=== PATIENT | male | born 1995 | race Caucasian/White ===

== ENCOUNTER 2017-11-29 15:16 | Emergency (ER) | payer BC, MEDICAID ==
--- NOTE | 2017-11-29 15:28 | Emergency Department Record ---
History of Present Illness - General Chief complaint: Vomiting Stated complaint: VOMITING,HIGH SUGAR,LARGE AMOUNTS OF KEYTONES Time Seen by Provider: 11/29/17 15:20 Source: Patient, Family Mode of Arrival: Ambulatory Limitations: Other - History of Present Illness Initial comments: 22 yo male presents with nausea and vomiting since 7am. He had one loose stool. No blood in either. No fevers. He is a diabetic with an insulin pump. His onset of diabetes was age 11. He has a history of agenesis of the corpus callosum. His mother checked his sugar. It was in the 400's with ketones on his strip at home. Normal range for Lopez is 120-190 on his glucose with an A1C of just over 7. MD complaint: Diarrhea, Nausea, Vomiting Onset/Timin -: Hour(s) Description of Vomiting: Watery Associated Abdominal Pain: Yes Location: Diffuse Improves with: None Worsens with: None Associated Symptoms: Nausea/vomiting - Related Data Home Medications Medication Instructions Recorded Confirmed Last Taken Insulin Aspart [Novolog] 1 units SQ ASDIR 11/29/17 11/29/17 11/29/17 Insulin Glargine,Hum.rec.anlog 33 unit SQ ASDIR 11/29/17 11/29/17 Unknown [Lantus] Allergies Allergy/AdvReac Type Severity Reaction Status Date / Time No Known Drug Allergies Allergy Verified 11/29/17 15:27 Travel Screening - Travel/Exposure Within Last 30 Days Have you traveled within the last 30 days?: No Review of Systems Constitutional: Denies: Chills, Fever, Malaise, Night sweats, Weakness Eyes: Denies: Eye discharge, Eye pain, Photophobia, Vision change ENT: Denies: Congestion, Throat pain Respiratory: Denies: Cough, Dyspnea, Hemoptysis, Stridor, Wheezes Cardiovascular: Denies: Chest pain, Palpitations, Syncope Endocrine: Reports: Polyuria. Denies: Fatigue Gastrointestinal: Reports: As per HPI, Abdominal pain, Diarrhea, Nausea, Vomiting. Denies: Constipation, Hematemesis, Hematochezia, Melena Genitourinary: Reports: Frequency. Denies: Dysuria Musculoskeletal: Denies: Arthralgia, Back pain, Joint swelling, Myalgia Skin: Denies: Bruising, Change in color, Rash Neurological: Denies: Headache, Numbness, Weakness Psychiatric: Denies: Anxiety Hematological/Lymphatic: Denies: Blood Clots, Easy bleeding, Easy bruising, Swollen glands Physical Exam - General General Appearance: Alert, Oriented x3, Cooperative, No acute distress Limitations: No limitations - Head Head exam: Atraumatic, Normal inspection - Eye Eye exam: Normal appearance. negative: Conjunctival injection, Scleral icterus - ENT ENT exam: Normal exam, Mucous membranes dry Ear exam: Normal external inspection Nasal Exam: Normal inspection Mouth exam: Normal external inspection Teeth exam: Normal inspection Throat exam: Normal inspection. negative: Tonsillar erythema, Tonsillomegaly - Neck Neck exam: Normal inspection, Full ROM. negative: Tenderness - Respiratory Respiratory exam: Normal lung sounds bilaterally. negative: Respiratory distress, Rhonchi, Stridor, Wheezes - Cardiovascular Cardiovascular Exam: Normal rhythm, Normal heart sounds, Tachycardia - GI/Abdominal GI/Abdominal exam: Soft. negative: Distended, Guarding, Rebound, Rigid, Tenderness - Rectal Rectal exam: Deferred - exam: Deferred - Extremities Extremities exam: Normal inspection, Full ROM, Normal capillary refill. negative: Pedal edema, Tenderness - Back Back exam: Reports: Normal inspection, Full ROM. Denies: Muscle spasm, Rash noted, Tenderness - Neurological Neurological exam: Alert. negative: Altered - Psychiatric Psychiatric exam: Normal affect, Normal mood - Skin Skin exam: Dry, Intact, Normal color, Warm. negative: Diaphoretic Course Vital Signs 11/29/17 15:22 Temperature 97.6 F Pulse Rate 113 H Respiratory 20 Rate Blood Pressure 128/70 Pulse Ox 97 - Reevaluation(s) Reevaluation #1: vitals reviewed HR is 113 11/29/17 15:28 11/29/17 16:27 The labs were reviewed WBC count is 20.3 pH is 7.26 HCO3 is 17 AG is 28 Glucose is 459 K is 4.8 11/29/17 17:10 Given the DKA, insulin pump, developmental issue, and his providers are at [facility] the patient will be transferred to [facility] for treatment I called through [facility] and the Patient was accepted by Dr Escobedo 11/29/17 18:41 The patient states he is feeling better at this time Bed was assigned at [facility] Accu check is 329 on drip. 11/29/17 18:42 The drip was decreased to 2 units/hour Medical Decision Making - Lab Data Result diagrams: 11/29/17 15:45 11/29/17 15:45 Disposition Disposition: Transfer Clinical Impression: DKA (diabetic ketoacidoses), Vomiting, Dehydration Disposition: Acute Care Hospital Transfer Transfer To: [facility] Reason For Transfer: DKA Accepting Physician: Fanny Time Discussed w/Accepting Physician: 17:12 Condition: (2) Stable Forms: Patient Portal Access Time of Disposition: 17:12 Quality - Quality Measures Quality Measures: N/A - Blood Pressure Screening Does Patient Have Any of the Following: No Blood Pressure Classification: Pre-Hypertensive BP Reading Systolic Measurement: 128 Diastolic Measurement: 70 Screening for High Blood Pressure: < Pre-Hypertensive BP, F/U Documented > [ G8950] Pre-Hypertensive Follow-up Interventions: Referral to alternative/primary care provider.
[2017-11-29] MEDS ORDERED: 0.9 % SODIUM CHLORIDE 1,000 ML BAG IV ONE ×2 (15:29→16:28)
[2017-11-29] MEDS ORDERED: ONDANSETRON HCL IV 4 MG/2 ML VIAL IVP ONE ×2 (15:47→17:29)
[2017-11-29 15:51] LABS: HEMOGLOBIN 16.8 gm/dl (14.0-18.0); MEAN CELL VOLUME 88.6 fl (81-97); MEAN CORPUSCULAR HEMOGLOBIN 33.1 pg (27-33); MEAN CORPUSCULAR HGB CONC 37.3 g/dl (32-36); MEAN PLATELET VOLUME 8.1 fl (7.4-10.4); PLATELET COUNT 256 K/uL (130-400); RED BLOOD COUNT 5.08 M/uL (4.40-5.70); RED CELL DISTRIBUTION WIDTH 13.4 % (11.5-14.5)
[2017-11-29 16:05] LABS: WHITE BLOOD COUNT W/O DIFF 20.3 K/uL (4.2-12.2)
[2017-11-29 16:14] LABS: ALB/GLOB RATIO 2.5 (1.1-1.8); ALBUMIN 5.2 g/dL (4.0-5.0); ALKALINE PHOSPHATASE 102 U/L (40-129); ALT/SGPT 25 U/L (<41); AST/SGOT 21 U/L (10.0-50.0); BLOOD UREA NITROGEN 33 mg/dL (6-20); CREATININE 1.1 mg/dL (0.7-1.2); EST GLOMERULAR FILTRATION RATE > 60 mL/min; TOTAL PROTEIN 7.3 g/dL (6.6-8.7)
[2017-11-29 16:26] LABS: GLUCOSE,RANDOM 459 mg/dL (74-109)
[2017-11-29 16:33] LABS: ACETONE,SERUM POSITIVE (NEGATIVE)
[2017-11-29] MEDS ORDERED: INSULIN REGULAR, HUMAN 100 UNIT in 0.9 % SODIUM CHLORIDE 100ML 100 ML IV SCH ×2 (17:00)
[2017-11-29 18:55] LABS: URINE APPEARANCE CLEAR; URINE BILIRUBIN NEGATIVE (NEGATIVE); URINE BLOOD TRACE-I (NEGATIVE); URINE COLOR YELLOW; URINE KETONE 40 mg/dL (NEGATIVE); URINE LEUKOCYTE ESTERASE NEGATIVE (NEGATIVE); URINE NITRITE NEGATIVE (NEGATIVE); URINE PROTEIN NEGATIVE (NEGATIVE); URINE UROBILINOGEN 0.2 E.U./dL (0.20 - 1.00)
[2017-11-29 18:57] LABS: URINE GLUCOSE (UA) >=1000 mg/dL (NEGATIVE)
[2017-11-29 19:08] LABS: URINE BACTERIA NONE SEEN; URINE RBC 0 - 2 (NONE SEEN); URINE SQUAMOUS EPITHELIAL CELL 0 - 2 /hpf; URINE WBC 0 - 2 (0-2/hpf)
[2017-11-29] MEDS ORDERED: DEXTROSE 5 %-0.45 % NACL 1,000 ML IV PRN (20:15)
--- NOTE | 2017-11-29 20:16 | Emergency Department Record ---
History of Present Illness - General Chief complaint: Vomiting Stated complaint: VOMITING,HIGH SUGAR,LARGE AMOUNTS OF [place] Time Seen by Provider: 11/29/17 15:20 Source: Patient, Family Mode of Arrival: Ambulatory Limitations: No limitations - History of Present Illness MD complaint: Diarrhea, Nausea, Vomiting Onset/Timin -: Hour(s) Description of Vomiting: Watery Associated Abdominal Pain: Yes Location: Diffuse Improves with: None Worsens with: None Associated Symptoms: Nausea/vomiting - Related Data Home Medications Medication Instructions Recorded Confirmed Last Taken Insulin Aspart [Novolog] 1 units SQ ASDIR 11/29/17 11/29/17 11/29/17 Insulin Glargine,Hum.rec.anlog 33 unit SQ ASDIR 11/29/17 11/29/17 Unknown [Lantus] Allergies Allergy/AdvReac Type Severity Reaction Status Date / Time No Known Drug Allergies Allergy Verified 11/29/17 15:27 Travel Screening - Travel/Exposure Within Last 30 Days Have you traveled within the last 30 days?: No Review of Systems Constitutional: Denies: Chills, Fever, Malaise, Night sweats, Weakness Eyes: Denies: Eye discharge, Eye pain, Photophobia, Vision change ENT: Denies: Congestion, Throat pain Respiratory: Denies: Cough, Dyspnea, Hemoptysis, Stridor, Wheezes Cardiovascular: Denies: Chest pain, Palpitations, Syncope Endocrine: Reports: Polyuria. Denies: Fatigue Gastrointestinal: Reports: As per HPI, Abdominal pain, Diarrhea, Nausea, Vomiting. Denies: Constipation, Hematemesis, Hematochezia, Melena Genitourinary: Reports: Frequency. Denies: Dysuria Musculoskeletal: Denies: Arthralgia, Back pain, Joint swelling, Myalgia Skin: Denies: Bruising, Change in color, Rash Neurological: Denies: Headache, Numbness, Weakness Psychiatric: Denies: Anxiety Hematological/Lymphatic: Denies: Blood Clots, Easy bleeding, Easy bruising, Swollen glands Past Medical History - SOCIAL HISTORY Smoking Status: Never smoker Alcohol Use: None Drug Use: None - RESPIRATORY Hx Respiratory Disorders: No - CARDIOVASCULAR Hx Cardio Disorders: No - NEURO Hx Neuro Disorders: No - GI Hx GI Disorders: No - Hx Genitourinary Disorders: No - ENDOCRINE Hx Endocrine Disorders: Yes Hx Diabetes: Yes - MUSCULOSKELETAL Hx Musculoskeletal Disorders: No - PSYCH Hx Psych Problems: No - HEMATOLOGY/ONCOLOGY Hx Hematology/Oncology Disorders: No Family Medical History Any Significant Family History?: No Physical Exam - General Limitations: No limitations Course Vital Signs 11/29/17 11/29/17 11/29/17 15:22 16:49 18:30 Temperature 97.6 F Pulse Rate 113 H Pulse Rate [ 106 H 110 H Pulse Ox Probe] Respiratory 20 20 16 Rate Blood Pressure 128/70 Blood Pressure 123/61 106/53 [Right Arm] Pulse Ox 97 98 98 11/29/17 19:26 Temperature 97.5 F L Pulse Rate Pulse Rate [ 117 H Pulse Ox Probe] Respiratory 18 Rate Blood Pressure Blood Pressure 121/60 [Right Arm] Pulse Ox 98 - Reevaluation(s) Reevaluation #1: 11/29/17 20:13 [facility] returned call following acceptance by the Hospitalist (Dr. Escobedo), reports that the [facility] nursing staff is uncomfortable with AG of 28 despite HCO3 of 17 and pH 7.26. Last glucose down to 247, will re-draw AG and switch IVFs to D5 1/2 NS as the glucose is now below 250. Reevaluation #2: 11/29/17 20:25 repeat AG is improved to 20. [facility] re-contacted, will accept the patient to SDU at this time. Medical Decision Making - Lab Data Result diagrams: 11/29/17 15:45 11/29/17 19:57 Lab Results 11/29/17 11/29/17 11/29/17 Range/Units 15:45 15:45 18:30 WBC 20.3 H* (4.2-12.2) K/uL RBC 5.08 (4.40-5.70) M/uL Hgb 16.8 (14.0-18.0) gm/dl Hct 45.0 (42.0-52.0) % MCV 88.6 (81-97) fl MCH 33.1 H (27-33) pg MCHC 37.3 H (32-36) g/dl RDW 13.4 (11.5-14.5) % Plt Count 256 (130-400) K/uL MPV 8.1 (7.4-10.4) fl Neutrophils % 98.0 H (47-80) % Eosinophils % Not Reportable Basophils % Not Reportable Lymphocytes 2.0 L (16-45) % Monocytes 0.0 (0-9) % VBG pH 7.26 L (7.33-7.43) Sodium 136 (136-145) mmol/L Potassium 4.8 H (3.4-4.5) mmol/L Chloride 91 L (98-107) mmol/L Carbon Dioxide 17.0 L (22-29) mmol/L Anion Gap 28.0 H (7-16) BUN 33 H (6-20) mg/dL Creatinine 1.1 (0.7-1.2) mg/dL Estimated GFR > 60 mL/min POC Glucose 321 H (70-110) mg/dL Random Glucose 459 H* (74-109) mg/dL Calcium 10.1 H (8.6-10.0) mg/dL Magnesium 2.3 (1.6-2.6) mg/dL Total Bilirubin 1.10 H (0.2-1.0) mg/dL AST 21 (10.0-50.0) U/L ALT 25 (<41) U/L Alkaline Phosphatase 102 (40-129) U/L Total Protein 7.3 (6.6-8.7) g/dL Albumin 5.2 H (4.0-5.0) g/dL Globulin 2.1 (1.4-4.8) gm/dL Albumin/Globulin Ratio 2.5 H (1.1-1.8) Urine Color Urine Appearance Urine pH (5.0-8.0) Ur Specific [place] (1.002-1.030) Urine Protein (NEGATIVE) Urine Glucose (UA) (NEGATIVE) Urine Ketones (NEGATIVE) Urine Blood (NEGATIVE) Urine Nitrite (NEGATIVE) Urine Bilirubin (NEGATIVE) Urine Urobilinogen (0.20 - 1.00) E.U./dL Ur Leukocyte Esterase (NEGATIVE) Urine RBC (NONE SEEN) Urine WBC (0-2/hpf) U Non-Squamous Epi Cells /hpf Urine Bacteria Acetone, Qual Positive (NEGATIVE) 11/29/17 11/29/17 Range/Units 18:41 19:26 WBC (4.2-12.2) K/uL RBC (4.40-5.70) M/uL Hgb (14.0-18.0) gm/dl Hct (42.0-52.0) % MCV (81-97) fl MCH (27-33) pg MCHC (32-36) g/dl RDW (11.5-14.5) % Plt Count (130-400) K/uL MPV (7.4-10.4) fl Neutrophils % (47-80) % Eosinophils % Basophils % Lymphocytes (16-45) % Monocytes (0-9) % VBG pH (7.33-7.43) Sodium (136-145) mmol/L Potassium (3.4-4.5) mmol/L Chloride (98-107) mmol/L Carbon Dioxide (22-29) mmol/L Anion Gap (7-16) BUN (6-20) mg/dL Creatinine (0.7-1.2) mg/dL Estimated GFR mL/min POC Glucose 247 H (70-110) mg/dL Random Glucose (74-109) mg/dL Calcium (8.6-10.0) mg/dL Magnesium (1.6-2.6) mg/dL Total Bilirubin (0.2-1.0) mg/dL AST (10.0-50.0) U/L ALT (<41) U/L Alkaline Phosphatase (40-129) U/L Total Protein (6.6-8.7) g/dL Albumin (4.0-5.0) g/dL Globulin (1.4-4.8) gm/dL Albumin/Globulin Ratio (1.1-1.8) Urine Color Yellow Urine Appearance Clear Urine pH 5.5 (5.0-8.0) Ur Specific [place] 1.025 (1.002-1.030) Urine Protein Negative (NEGATIVE) Urine Glucose (UA) >=1000 mg/dl H (NEGATIVE) Urine Ketones 40 mg/dl H (NEGATIVE) Urine Blood Trace-i (NEGATIVE) Urine Nitrite Negative (NEGATIVE) Urine Bilirubin Negative (NEGATIVE) Urine Urobilinogen 0.2 (0.20 - 1.00) E.U./dL Ur Leukocyte Esterase Negative (NEGATIVE) Urine RBC 0 - 2 (NONE SEEN) Urine WBC 0 - 2 (0-2/hpf) U Non-Squamous Epi Cells 0 - 2 /hpf Urine Bacteria None seen Acetone, Qual (NEGATIVE) Disposition Clinical Impression: DKA (diabetic ketoacidoses), Vomiting, Dehydration Disposition: Acute Care Hospital Transfer Condition: (2) Stable Forms: Patient Portal Access Quality - Quality Measures Quality Measures: N/A - Blood Pressure Screening Does Patient Have Any of the Following: No Blood Pressure Classification: Pre-Hypertensive BP Reading Systolic Measurement: 128 Diastolic Measurement: 70 Screening for High Blood Pressure: < Pre-Hypertensive BP, F/U Documented > [ G8950] Pre-Hypertensive Follow-up Interventions: Referral to alternative/primary care provider.
[2017-11-29 20:23] LABS: BLOOD UREA NITROGEN 30 mg/dL (6-20); CREATININE 0.9 mg/dL (0.7-1.2); EST GLOMERULAR FILTRATION RATE > 60 mL/min
[2017-11-29 20:25] LABS: GLUCOSE,RANDOM 264 mg/dL (74-109)
== END 2017-11-29 20:50 | disposition short-term general hospital (02) ==
LOC: ER 15:16
DX: E11.10 Type 2 diabetes mellitus with ketoacidosis without coma (principal); E86.0 Dehydration; R11.2 Nausea with vomiting, unspecified; R19.7 Diarrhea, unspecified; Z96.41 Presence of insulin pump (external) (internal); Z79.4 Long term (current) use of insulin
CPT/HCPCS: 99285 ×2; 96376; 96365; 96366; 96375; 96361; 83735; 82800; 80048; 80053; 36416; 81001; 82009; 82948; 85027; J2405; J1815; J7030